=== PATIENT | female | born 1965 | race Caucasian/White ===

== ENCOUNTER 2017-02-12 18:28 | Emergency (ER) | payer OTHER ==
[~2017-02-12] VITALS: Ht 175.3 cm; Wt 63.5 kg
--- NOTE | 2017-02-12 19:18 | NUR ---
Still for MD to evaluate, respiration:easy, pt is calm, endorsed to 7pm nurse Jarvis ledesma
[2017-02-12 19:49] VITALS: BP 110/79
--- NOTE | 2017-02-12 19:49 | NUR ---
Patient discharged to home in stable conditon. Written and verbal after care instructions given. Patient verbalizes understanding of instructions. WALKED OUT OF ER WITH NO DISTRESS NOTED
== END 2017-02-12 19:50 | disposition home or self-care (01) ==
LOC: ER 18:29
DX: H92.01 Otalgia, right ear (principal); F17.200 Nicotine dependence, unspecified, uncomplicated; J02.9 Acute pharyngitis, unspecified
CPT/HCPCS: A4663

== ENCOUNTER 2017-07-15 13:55 | Emergency (ER) | payer OTHER ==
[~2017-07-15] VITALS: Ht 175.3 cm; Wt 63.5 kg
[2017-07-15] MEDS ORDERED: TDAP DIPH,PERTUSS,TET VAC/PF 0.5 ML DISP.SYRIN IM ONE ×2 (14:41→14:45)
[2017-07-15] MEDS ORDERED: NEOMY/BACITRA/POLYMYXIN B OINT UD PACKET TP ONE ×2 (14:45→14:51)
--- NOTE | 2017-07-15 14:52 | NUR ---
Patient discharged to home in stable conditon. Written and verbal after care instructions given. Patient verbalizes understanding of instructions.
== END 2017-07-15 14:54 | disposition home or self-care (01) ==
LOC: ER 13:55
DX: S01.411A Laceration without foreign body of right cheek and temporomandibular area, initial encounter (principal); F17.200 Nicotine dependence, unspecified, uncomplicated; G43.909 Migraine, unspecified, not intractable, without status migrainosus; W54.0XXA Bitten by dog, initial encounter; Y92.89 Other specified places as the place of occurrence of the external cause; Y93.89 Activity, other specified; Y99.8 Other external cause status
CPT/HCPCS: 90471; 90715; 99283; A4217; A4663

== ENCOUNTER 2018-12-10 19:20 | Emergency (ER) | payer OTHER ==
[~2018-12-10] VITALS: Ht 175.3 cm; Wt 61.2 kg
--- NOTE | 2018-12-10 20:13 | NUR ---
Patient transported to Radiology in stable condition via w/c
[2018-12-10] MEDS ORDERED: ONDANSETRON 4 MG/2 ML VIAL ONE (20:35)
[2018-12-10] MEDS ORDERED: HYDROMORPHONE 1 MG/1 ML DISP.SYRIN ONE (20:35)
[2018-12-10] MEDS ORDERED: HYDROCODONE/APAP 10-325 MG TABLET ONE (20:39)
[2018-12-10] MEDS: HYDROCODONE/APAP 10-325 MG TABLET PO ONE (20:39)
[2018-12-10] MEDS: ONDANSETRON 4 MG/2 ML VIAL IM ONE (20:39)
[2018-12-10] MEDS: HYDROMORPHONE 1 MG/1 ML DISP.SYRIN IM ONE (20:39)
[2018-12-10 21:19] VITALS: BP 124/79
--- NOTE | 2018-12-10 21:19 | NUR ---
Patient discharged to home in stable conditon. Written and verbal after care instructions given. Patient verbalizes understanding of instructions. Patient ambulated with stable gait. Son is driving patient home.
== END 2018-12-10 21:20 | disposition home or self-care (01) ==
LOC: ER 19:25
DX: M54.5 Low back pain (principal); M54.6 Pain in thoracic spine; F17.200 Nicotine dependence, unspecified, uncomplicated
CPT/HCPCS: 72072; 72100; A4663; J1170; J2405

== ENCOUNTER 2018-12-26 18:45 | Emergency (ER) | payer OTHER ==
[~2018-12-26] VITALS: Ht 175.3 cm; Wt 61.7 kg
--- NOTE | 2018-12-26 19:09 | NUR ---
Patient came from home. Patient chief complain of left foot pain after indect bight. patient denies any other symptoms. Denies and fever or chills. Patient states that is pain to bear weight on the left foot. Rates the pain at a 6 from a scale of 0-10. patient decribes the pain as intermittent and dull. patient stated she had an episode like this in the past and was treated with antibiotics she received from an urgent care.
--- NOTE | 2018-12-26 19:18 | NUR ---
Dr. Holman at bedside to evaluate patient.
[2018-12-26] MEDS ORDERED: DEXAMETHASONE SOD PHOSPHATE 10 MG INJ ONE (19:29)
[2018-12-26] MEDS ORDERED: IBUPROFEN 600 MG TABLET ONE (19:29)
[2018-12-26] MEDS ORDERED: DEXAMETHASONE SOD PHOSPHATE 4 MG INJ IM ONE (19:30)
[2018-12-26] MEDS ORDERED: IBUPROFEN 600 MG TABLET PO ONE (19:30)
[2018-12-26 19:38] LABS: BASOPHILS % (AUTO) 0.7 % (0.0-2.0); EOSINOPHILS # (AUTO) 0.2 K/uL (0.0-0.7); HEMATOCRIT 40.9 % (31.2-41.9); HEMOGLOBIN 13.6 g/dL (10.9-14.3); LYMPHOCYTES # (AUTO) 1.8 K/uL (20.0-40.0); LYMPHOCYTES % (AUTO) 28.4 % (20.5-51.5); MEAN CORPUSCULAR HEMOGLOBIN 29.1 uug (24.7-32.8); MEAN CORPUSCULAR HGB CONC 33 g/dL (32.3-35.6); MEAN CORPUSCULAR VOLUME 87.6 fL (75.5-95.3); MONOCYTES # (AUTO) 0.5 K/uL (2.0-10.0); MONOCYTES % (AUTO) 7.6 % (0.0-11.0); NEUTROPHILS # (AUTO) 3.8 K/uL (1.8-8.9); NEUTROPHILS % (AUTO) 60.3 % (38.5-71.5); PLATELET COUNT (AUTO) 233 K/uL (179-408); RED BLOOD CELL COUNT(AUTO) 4.67 MIL/uL (3.63-4.92); WHITE BLOOD COUNT (AUTO) 6.4 K/uL (3.8-11.8)
[2018-12-26 19:44] LABS: CREATININE 0.8 mg/dL (0.6-1.3); POTASSIUM 3.8 mmol/L (3.5-5.1)
[2018-12-26 19:49] LABS: BILIRUBIN,TOTAL 0.4 mg/dL (0.2-1.0); TOTAL PROTEIN, SERUM 7.5 g/dL (6.4-8.2)
--- NOTE | 2018-12-26 20:17 | NUR ---
Patient discharged to home in stable conditon. Written and verbal after care instructions given. Patient verbalizes understanding of instructions. Patient ambulatory with steady gait. exit care paockage and personal belongings taken home with the patient at discharge. Patient denies any pain/discomfort at this time.
[2018-12-26 20:20] VITALS: BP 121/80
== END 2018-12-26 20:20 | disposition home or self-care (01) ==
LOC: ER 18:46
DX: S90.862A Insect bite (nonvenomous), left foot, initial encounter (principal); F17.200 Nicotine dependence, unspecified, uncomplicated; W57.XXXA Bitten or stung by nonvenomous insect and other nonvenomous arthropods, initial encounter; Y93.89 Activity, other specified; Y92.89 Other specified places as the place of occurrence of the external cause; Y99.8 Other external cause status
CPT/HCPCS: 36415; 80053; 85025; 96372; 99283; J1100; A4663

== ENCOUNTER 2020-01-11 11:17 | Emergency (ER) | payer OTHER ==
[~2020-01-11] VITALS: Ht 175.3 cm; Wt 63.5 kg
[2020-01-11] MEDS ORDERED: MECLIZINE HCL 25 MG TABLET ONE (12:00)
[2020-01-11] MEDS ORDERED: MECLIZINE HCL 25 MG TABLET PO ONE (12:00)
--- NOTE | 2020-01-11 12:10 | NUR ---
Lab at bedside for blood draw.
[2020-01-11 12:26] LABS: BASOPHILS % (AUTO) 0.7 % (0.0-2.0); EOSINOPHILS # (AUTO) 0.1 K/uL (0.0-0.7); EOSINOPHILS % (AUTO) 1.3 % (0.0-7.0); HEMATOCRIT 41.8 % (31.2-41.9); HEMOGLOBIN 14.4 g/dL (10.9-14.3); LYMPHOCYTES # (AUTO) 1.2 K/uL (20.0-40.0); LYMPHOCYTES % (AUTO) 27.4 % (20.5-51.5); MEAN CORPUSCULAR HGB CONC 34 g/dL (32.3-35.6); MEAN CORPUSCULAR VOLUME 87.4 fL (75.5-95.3); MONOCYTES # (AUTO) 0.4 K/uL (2.0-10.0); MONOCYTES % (AUTO) 8.4 % (0.0-11.0); NEUTROPHILS # (AUTO) 2.8 K/uL (1.8-8.9); NEUTROPHILS % (AUTO) 62.2 % (38.5-71.5); PLATELET COUNT (AUTO) 237 K/uL (179-408); RED BLOOD CELL COUNT(AUTO) 4.78 MIL/uL (3.63-4.92); WHITE BLOOD COUNT (AUTO) 4.5 K/uL (3.8-11.8)
[2020-01-11 12:28] LABS: CREATININE 0.7 mg/dL (0.6-1.3); POTASSIUM 3.6 mmol/L (3.5-5.1)
--- NOTE | 2020-01-11 12:44 | NUR ---
Patient transported to CT in stable condition.
[2020-01-11 14:30] VITALS: BP 121/73
--- NOTE | 2020-01-11 14:30 | NUR ---
Patient discharged to home in stable condition. Written and verbal after care instructions given. Patient verbalizes understanding of instructions. Stressed follow up or return to ER for worsening s/s. Patient is able to ambulate with stable gait.
== END 2020-01-11 14:35 | disposition home or self-care (01) ==
LOC: ER 11:35
DX: H81.399 Other peripheral vertigo, unspecified ear (principal); Z87.01 Personal history of pneumonia (recurrent); Z87.898 Personal history of other specified conditions; Z86.69 Personal history of other diseases of the nervous system and sense organs
CPT/HCPCS: 36415; 70030-TC; 70450; 85025; 85651; 85730; 93005; A4663; J8597